=== PATIENT | female | born 1990 | race Caucasian/White ===

== ENCOUNTER 2020-07-19 10:08 | Emergency (ER) | payer OTHER, SELFPAY ==
--- NOTE | 2020-07-19 10:18 | PC.NURSE ---
Here for narctoic refill informed by NUCLEAR AUXILIARY OPERATOR that she wioll not order any patient left
== END 2020-07-19 10:18 | disposition left against medical advice (07) ==
PROVIDERS: Emergency Provider Nurse Practitioner Family
DX: Z53.21 Procedure and treatment not carried out due to patient leaving prior to being seen by health care provider (principal)
CPT/HCPCS: 99199

== ENCOUNTER 2020-07-19 12:10 | Emergency (ER) | payer OTHER, SELFPAY ==
[2020-07-19 12:21] VITALS: BP 106/70; PULSE 76; RESP 20; TEMP 37.1; O2SAT 99
--- NOTE | 2020-07-19 13:07 | ED.ABDPAIN ---
HPI - Abdominal Pain General Chief Complaint: Unspecified Stated Complaint: request narcotic s/p tonsillectomy Time Seen by Provider: 07/19/20 12:12 Source: patient Mode of arrival: ambulatory Limitations: no limitations History of Present Illness HPI narrative: Patient is a 30-year-old female who presents to emergency department for evaluation of throat pain status TNA Tuesday patient has been taking liquid hydrocodone with pain management is running low and would like a refill noting aching pain at the throat is also currently on antibiotics patient denies any fever chills nausea vomiting on arrival is in no distress and is going back to her home state on Tuesday and is currently visiting family Related Data Home Medications Medication Instructions Recorded Confirmed Claritin 07/19/20 sertraline 07/19/20 Allergies Allergy/AdvReac Type Severity Reaction Status Date / Time No Known Allergies Allergy Mild Verified 07/19/20 12:25 Review of Systems Review of Systems: All systems reviewed & are unremarkable except as noted in HPI and below PMFSH Surgical History Surgical History Hx of tonsillectomy Social History Social History (Updated 07/19/20 @ 13:08 by Edmund Siddiqui PA-C) Smoking status: Never smoker Gender identity (if verbalized by the patient): Female Exam Narrative: Exam Narrative: GENERAL: Well-appearing, well-nourished, and in no acute distress. HEAD: Normocephalic, atraumatic. EYES: PERRLA and EOMI. ENT: Nares clear, no rhinorrhea or epistaxis. Mucous membranes moist. Oropharynx with healing scabs at the tonsillectomy site uvula midline no trismus or drooling no bleeding NECK: Supple. No adenopathy or masses. No carotid bruits or JVD CHEST: Clear to auscultation. No respiratory distress. No wheezes rales or rhonchi HEART: Regular rate and rhythm. No murmur heard. EXTREMITIES: Normal range of motion. No edema. SKIN: Warm, dry, no rash. NEURO: No focal deficits. Alert and oriented x3. PSYCH: Normal mood and affect. Course Course Emergency Course: Patient in the room at this time in no distress aware of case findings treatment plan and diagnosis agreeing to follow-up as directed or to return if symptoms worsen or concerns Vital Signs Vital signs: Vital Signs Temperature 98.7 F 07/19/20 12:21 Pulse Rate 76 07/19/20 12:21 Respiratory Rate 20 07/19/20 12:21 Blood Pressure 106/70 07/19/20 12:21 Pulse Oximetry 99 07/19/20 12:21 Temperature 98.7 F 07/19/20 12:21 Pulse Rate 76 07/19/20 12:21 Respiratory Rate 20 07/19/20 12:21 Blood Pressure 106/70 07/19/20 12:21 Pulse Oximetry 99 07/19/20 12:21 MDM - Abdominal Pain MDM Narrative Medical decision making narrative: Patient will be given medications for his symptoms discharged home felt appropriate for outpatient reevaluation by her specialist upon returning home Discharge Plan Discharge Clinical Impression: Post-operative pain Patient Disposition: Home, Self-Care Condition: Stable Instructions: Antibiotic Form, Tonsillectomy (DC) Additional Instructions: Follow up with your primary care provider within 1-2 days. Go to ER for shortness of breath, difficulty breathing, chest pain, fever/chills, weakness, nauseau/vomitting, unable to swallow or open the mouth etc. or any other concerns. Stay well-hydrated Take any prescribed medications as directed. Follow patient education sheets If you do not have a drug allergy to tylenol or motrin and can tolerate it then take tylenol or motrin as needed for discomfort/pain. Prescriptions: New ibuprofen [Children's Ibuprofen] 100 mg/5 mL suspension 600 mg PO QID PRN (Reason: fever or pain) Qty: 4320 RF: 0 lidocaine HCl 2 % solution 1 applic MUCOUS MEM QID PRN (Reason: pain) Qty: 100 RF: 0 No Action Claritin RF: 0 sertraline RF: 0 Follow-up/Referr
[2020-07-19 13:26] VITALS: BP 94/63; PULSE 70; RESP 18; TEMP 37.4; O2SAT 100
== END 2020-07-19 13:35 | disposition home or self-care (01) ==
PROVIDERS: Emergency Provider Emergency Medicine
DX: G89.18 Other acute postprocedural pain (principal); R07.0 Pain in throat
CPT/HCPCS: 96372; 99283; A9270; J1100

== ENCOUNTER 2020-07-21 10:52 | Emergency (ER) | payer OTHER, SELFPAY ==
[2020-07-21 11:01] VITALS: BP 107/67; PULSE 76; RESP 18; TEMP 36.9; O2SAT 100
--- NOTE | 2020-07-21 11:15 | ED.GENADULT ---
HPI - General Adult General Chief complaint: Dental/Oral Stated complaint: pos thrush Source: patient Mode of arrival: ambulatory Limitations: no limitations History of Present Illness HPI narrative: 30-year-old female presents to urgent care with complaints of white discoloration to her tongue for the past 2 to 3 days. Patient reports that she had a tonsillectomy completed in [place] on July 14. Patient reports that she is here now staying with family during recovery. Patient reports that she then went to [facility] emergency room 2 days ago for pain control. Patient reports that she was given a steroid injection and 1 dose of hydrocodone while in the emergency room. Patient reports that she also was sent home with viscous lidocaine. Patient reports that she was instructed to take [id number] Tylenol as needed. Patient reports that she has been in contact with her surgeon who informed her they will have to mail her the prescription for hydrocodone as they cannot E scribe it. Patient denies fever, body aches, chills, nausea, vomiting or diarrhea. Patient reports that she also continues to take Amoxil that she was prescribed per her surgeon --patient reports that she has approximately 3 days of amoxicillin left. Onset (ago): day(s) (2) Location: mouth Radiation: non-radiation Severity: mild Quality: burning Pain Consistency: intermittent Relieving factors: none Exacerbating factors: none Related Data Home Medications Medication Instructions Recorded Confirmed sertraline 25 mg DAILY 07/19/20 07/21/20 amoxicillin 400 mg QID 07/21/20 07/21/20 Allergies Allergy/AdvReac Type Severity Reaction Status Date / Time No Known Allergies Allergy Mild Verified 07/19/20 12:25 Review of Systems Constitutional: Constitutional: Denies chills, Denies fatigue, Denies fever(s) and Denies weakness ENT: Denies dysphagia, Denies dizziness and Denies epistaxis Comments: Sore throat due to status post tonsillectomy; white discoloration to tongue Cardiovascular: Cardiovascular: Denies chest pain, Denies rapid heart rate, Denies radiating jaw, neck or arm pain and Denies slow heart rate Respiratory: Respiratory: Denies chest congestion, Denies cough, Denies dyspnea and Denies wheezing Gastrointestinal: Gastrointestinal: Denies abdominal pain, Denies diarrhea, Denies nausea and Denies vomiting Integumentary/Breasts: Skin/Breast: Denies rash Neurologic: Denies vertigo, Denies dizziness and Denies syncope [facility] Past Medical History Medical History (Updated 07/21/20 @ 11:23 by Najma Antoine APRN) Tonsillectomy planned Surgical History Surgical History Hx of tonsillectomy Social History Social History Smoking status: Never smoker Gender identity (if verbalized by the patient): Female Exam Const: General: healthy appearing, no acute distress and alert Nutritional Appearance: well nourished Orientation/consciousness: patient oriented x3 HENMT: Ears: external ears normal and TM's normal bilaterally General nose exam: Normal external nose present, no nasal discharge noted and no epistaxis Mouth: Yes lip normal Throat: uvula midline Other: Mild erythema noted to posterior pharynx, healing tonsillectomy noted. There is large amount of white discoloration to tongue representing thrush. Eyes: Pupils: Equal, round and reactive pupils present Neck: Neck: normal visual inspection Resp: Effort & Inspection: normal respiratory effort and not tachypneic Auscultation: clear to auscultation bilaterally and no wheezes Cardio: Rate: regular rate, not bradycardic and not tachycardic Rhythm: regular rhythm and regular rhythm Skin: General skin exam: normal color Rashes: no rashes Neuro: General: patient oriented x3 and moves all extremities Extrem: General: normal to inspection Psych: Appearance: grossly norm
== END 2020-07-21 11:43 | disposition home or self-care (01) ==
PROVIDERS: Emergency Provider Nurse Practitioner Family
DX: B37.0 Candidal stomatitis (principal)
CPT/HCPCS: 99213; G0463